=== PATIENT | male | born 1970 | race Two or more races ===

== ENCOUNTER 2018-11-09 08:00 | Outpatient (CLI) | payer OTHER | END 2018-11-09 08:55 | disposition home or self-care (01) | LOC: LAB 08:00 | DX: R31.1 Benign essential microscopic hematuria (principal) ==

== ENCOUNTER 2018-11-09 09:28 | Outpatient (CLI) | payer OTHER | END 2018-11-09 09:32 | disposition home or self-care (01) | LOC: TOM 09:28 | DX: C64.2 Malignant neoplasm of left kidney, except renal pelvis (principal) ==

== ENCOUNTER 2018-11-21 08:12 | Outpatient (CLI) | payer OTHER | END 2018-11-21 17:00 | disposition home or self-care (01) | LOC: MRI 08:12 | DX: N28.1 Cyst of kidney, acquired (principal) | CPT/HCPCS: 74183 ==

== ENCOUNTER → 2019-12-17 12:48 | Outpatient (CLI) | payer OTHER | END | disposition home or self-care (01) | LOC: LAB 12:48 | PROVIDERS: ATTEND Urology | DX: R97.20 Elevated prostate specific antigen [PSA] (principal); E55.9 Vitamin D deficiency, unspecified; E78.49 Other hyperlipidemia; R73.09 Other abnormal glucose; R31.1 Benign essential microscopic hematuria ==

== ENCOUNTER 2019-12-18 07:57 | Outpatient (CLI) | payer OTHER | END 2019-12-18 08:05 | disposition home or self-care (01) | LOC: MRI 07:57 | PROVIDERS: ATTEND Urology | DX: R16.2 Hepatomegaly with splenomegaly, not elsewhere classified (principal); N28.1 Cyst of kidney, acquired | CPT/HCPCS: 72197; 74183 ==